=== PATIENT | female | born 1970 | race Caucasian/White ===

== ENCOUNTER 2024-05-13 16:47 | Emergency (ER) | payer SELFPAY ==
[~2024-05-13] VITALS: Ht 162.6 cm; Wt 68.0 kg
[2024-05-13 17:04] VITALS: BP 117/75; PULSE 85; RESP 20; TEMP 98; O2SAT 97
[2024-05-13] MEDS ORDERED: MECL-303 PO (17:42)
[2024-05-13] MEDS ORDERED: IBUP-2213 PO (17:42)
[2024-05-13 17:53] VITALS: BP 117/75; PULSE 85; RESP 20; TEMP 98; O2SAT 97
== END 2024-05-13 17:53 | disposition home or self-care (01) ==
LOC: MED 16:47
DX: R42 Dizziness and giddiness (principal); R51.9 Headache, unspecified; Z90.710 Acquired absence of both cervix and uterus
CPT/HCPCS: 99282